=== PATIENT | male | born 1980 | race Two or more races ===

== ENCOUNTER 2016-08-11 21:23 | Emergency (ER) | payer SELFPAY ==
[~2016-08-11] VITALS: Ht 182.9 cm; Wt 136.1 kg
[2016-08-11 23:43] VITALS: BP 158/93
== END 2016-08-12 00:11 | disposition home or self-care (01) ==
LOC: ER 21:32 → EDBD 21:32 → ER 08-12 00:11
DX: J40 Bronchitis, not specified as acute or chronic (principal)
CPT/HCPCS: 71020